=== PATIENT | male | born 1990 | race Caucasian/White ===

== ENCOUNTER → 2020-08-05 | Outpatient (CLI) | payer SELFPAY | LOC: M LABSMTC 11:16 | PROVIDERS: ATTEND Pediatrics | DX: Z20.828 Contact with and (suspected) exposure to other viral communicable diseases (principal) ==

== ENCOUNTER 2020-12-01 23:29 | Emergency (ER) | payer OTHER, SELFPAY ==
[~2020-12-01] VITALS: Ht 170.2 cm; Wt 83.2 kg
[2020-12-02] MEDS ORDERED: KETOROLAC TROMETHAMINE 10 MG TAB PO ONE (00:25)
--- NOTE | 2020-12-02 01:48 | REPVR ---
PROCEDURE INFORMATION: Exam: XR Left Ankle Exam date and time: 12/02/2020 1:26 AM Age: 30 years old Clinical indication: Other: Injured/pain/swelling TECHNIQUE: Imaging protocol: XR Left ankle. Views: 3 or more views. COMPARISON: No relevant prior studies available. FINDINGS: Bones/joints: Mildly displaced oblique fracture of the distal fibula. Soft tissues: Soft tissue swelling, greatest laterally. IMPRESSION: 1. Mildly displaced oblique fracture of the distal fibula. 2. Soft tissue swelling about the ankle, greatest laterally. Electronically signed by: Rasheed Lim On 12/02/2020 01:47:57 AM
[2020-12-02 03:50] VITALS: BP 131/60
--- NOTE | 2020-12-02 09:19 | REP ---
INDICATION: reduction COMPARISON: None. TECHNIQUE: Intraoperative fluoroscopic imaging using portable C-arm technique. FINDINGS: Patient is noted to be status post satisfactory closed reduction for distal fibular fracture. Total fluoroscopic time 15 seconds. IMPRESSION: Status post closed reduction for distal fibular fracture.. <Electronically signed by Adam Sue > 12/02/20 0916
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
== END 2020-12-02 03:52 | disposition home or self-care (01) ==
LOC: M ED 23:29
DX: S82.432A Displaced oblique fracture of shaft of left fibula, initial encounter for closed fracture (principal); X50.9XXA Other and unspecified overexertion or strenuous movements or postures, initial encounter; Y92.018 Other place in single-family (private) house as the place of occurrence of the external cause